=== PATIENT | female | born 1960 | race Two or more races ===

== ENCOUNTER 2022-12-18 14:42 | Inpatient (IN) | payer OTHER ==
[~2022-12-18] VITALS: Ht 139.7 cm; Wt 75.5 kg
[2022-12-18 15:39] VITALS: O2SAT 100
[2022-12-18 15:55] LABS: BASOPHILS % (AUTO) 0.3 % (0.0-2.0); EOSINOPHILS % (AUTO) 0.4 % (0.0-6.0); HEMATOCRIT 26 % (33-45); HEMOGLOBIN 8.1 g/dL (11.5-14.8); LYMPHOCYTES # (AUTO) 3.3 K/uL (0.8-4.8); LYMPHOCYTES % (AUTO) 26.4 % (20.0-44.0); MEAN CORPUSCULAR HEMOGLOBIN 24 PG (26.0-33.0); MEAN CORPUSCULAR HGB CONC 32 g/dl (31.0-36.0); MEAN CORPUSCULAR VOLUME 76 fL (82-100); MONOCYTES # (AUTO) 0.4 K/uL (0.1-1.30); MONOCYTES % (AUTO) 3.6 % (2.0-12.0); NEUTROPHILS # (AUTO) 8.6 K/uL (1.8-8.9); NEUTROPHILS % (AUTO) 69.3 % (43.0-81.0); PLATELET COUNT (AUTO) 235 K/uL (150-450); RED BLOOD CELL COUNT(AUTO) 3.37 MIL/uL (4.0-5.2); RED CELL DISTRIBUTION WIDTH 16.7 % (11.5-15.0); WHITE BLOOD COUNT (AUTO) 12.3 K/uL (4.3-11.0)
[2022-12-18] MEDS ORDERED: PANTOPRAZOLE 40 MG VIAL IV ONE (16:00)
[2022-12-18] MEDS ORDERED: IV NS 0.9% 1,000 ML BAG IV ONE (16:00)
[2022-12-18 16:09] LABS: CALCIUM, SERUM 7.8 mg/dL (8.5-10.1); CREATININE 0.7 mg/dL (0.6-1.3); INR 1.04 (0.91-1.10); PARTIAL THROMBOPLASTIN TIME 22.7 SEC (24.3-34.3); POTASSIUM 3.9 mmol/L (3.5-5.1); PROTHROMBIN TIME 10.9 SECS (9.2-11.1)
[2022-12-18 16:15] LABS: ALBUMIN 3.5 g/dL (3.4-5.0); BILIRUBIN,DIRECT 0.1 mg/dL (0.0-0.2); BILIRUBIN,TOTAL 0.3 mg/dL (0.2-1.0); TOTAL PROTEIN, SERUM 6.9 g/dL (6.4-8.2)
[2022-12-18] MEDS ORDERED: IOHEXOL-300 100 ML VIAL IV ONE ×2 (16:16→16:40)
[2022-12-18] MEDS ORDERED: IV NS 0.9% 250 ML IV ONE ×2 (16:16→16:40)
[2022-12-18] MEDS ORDERED: PANTOPRAZOLE 40 MG VIAL ONE (16:38)
[2022-12-18] MEDS ORDERED: ONDANSETRON HCL/PF 4 MG/2 ML VIAL ONE (16:43)
[2022-12-18 16:57] LABS: APPEARANCE,URINE CLEAR (CLEAR); BILIRUBIN,URINE NEGATIVE (NEGATIVE); BLOOD, URINE NEGATIVE Ery/uL (NEGATIVE); COLOR,URINE YELLOW (YELLOW); KETONES,URINE NEGATIVE (NEGATIVE); LEUKOCYTE ESTERASE ,URINE NEGATIVE (NEGATIVE); NITRITE, URINE NEGATIVE (NEGATIVE); PH,URINE 5.5 (5.0-8.0); PROTEIN,URINE NEGATIVE (NEGATIVE); UGLUCOSE 3+ mg/dL (NEGATIVE); UROBILINOGEN,URINE 0.2 EU/dL (0.2)
[2022-12-18 17:17] LABS: LACTIC ACID 2.9 mmol/L (0.4-2.0)
[2022-12-18 17:18] LABS: PREGNANCY TEST URINE QUAL NEGATIVE (NEGATIVE)
[2022-12-18] MEDS ORDERED: [UNRECOGNIZED DRUG - OTHER] PO (17:28)
[2022-12-18] MEDS ORDERED: INSU100I26 SQ (17:28)
[2022-12-18] MEDS ORDERED: DAPA1TAB3 PO (17:28)
[2022-12-18] MEDS ORDERED: LISI-768 PO (17:28)
[2022-12-18] MEDS ORDERED: ROSU5TAB13 PO (17:28)
[2022-12-18 17:29] LABS: LYMPHOCYTES % (MANUAL) 31 % (16-48); MONOCYTES % (MANUAL) 2 % (0-11.0); NEUTROPHILS % (MANUAL) 67 (42-76); PLATELET ESTIMATE ADEQUATE
[2022-12-18] MEDS ORDERED: ONDANSETRON HCL/PF 4 MG/2 ML VIAL IM ONE (17:30)
[2022-12-18] MEDS ORDERED: OCTREOTIDE 50 MCG/ML AMPUL IJ ONE (19:30)
[2022-12-18] MEDS ORDERED: Z GUARD REMEDY 4 OZ OINT TP PRN (19:30)
[2022-12-18] MEDS ORDERED: ACETAMINOPHEN 325 MG TABLET PO PRN (19:30)
[2022-12-18] MEDS ORDERED: ONDANSETRON HCL/PF 4 MG/2 ML VIAL IVP PRN (19:30)
[2022-12-18 19:48] LABS: HEMOGLOBIN 7.5 g/dL (11.5-14.8)
[2022-12-18] MEDS ORDERED: DEXTROSE 50%-WATER 50 ML DISP.SYRIN IV PRN (20:30)
[2022-12-18] MEDS ORDERED: OCTREOTIDE 50 MCG in IV NS 0.9% 50 ML IJ ONE ×2 (20:30)
[2022-12-18 20:36] LABS: THYROID STIMULATING HORMONE 0.893 uIU/mL (0.358-3.74)
[2022-12-18] MEDS: OCTREOTIDE 500 MCG in IV NS 0.9% 99 ML IV PRN (21:19)
[2022-12-18] MEDS: ATORVASTATIN 10 MG TABLET PO SCH ×2 (22:00→22:16)
[2022-12-18 22:58] VITALS: BP 84/40; TEMP 99
[2022-12-18 23:13] VITALS: BP 94/49; TEMP 99
[2022-12-18 23:45] VITALS: BP 90/56; TEMP 98.6
[2022-12-19] MEDS: BLOOD SUGAR DIAGNOSTIC 1 EACH STRIP IN SCH ×3 (00:02→12:03)
[2022-12-19] MEDS: INSULIN REGULAR, HUMAN 100 UNIT/ML 3 ML VIAL SQ PRN ×3 (00:03→15:11)
[2022-12-19 00:22] VITALS: BP 91/50; TEMP 98; O2SAT 97
[2022-12-19 00:45] VITALS: BP 95/48; TEMP 98.3
[2022-12-19 01:45] VITALS: BP 98/47; TEMP 98.7
[2022-12-19 02:25] VITALS: BP 96/53; TEMP 98.4
[2022-12-19] MEDS: IV D5/0.45 NACL 1,000 ML IV PRN ×2 (02:33→14:04)
[2022-12-19 04:07] LABS: BASOPHILS % (AUTO) 0.3 % (0.0-2.0); EOSINOPHILS # (AUTO) 0.1 K/uL (0.0-0.7); EOSINOPHILS % (AUTO) 0.9 % (0.0-6.0); HEMATOCRIT 27 % (33-45); HEMOGLOBIN 8.8 g/dL (11.5-14.8); LYMPHOCYTES # (AUTO) 5.3 K/uL (0.8-4.8); LYMPHOCYTES % (AUTO) 45.8 % (20.0-44.0); MEAN CORPUSCULAR HEMOGLOBIN 26 PG (26.0-33.0); MEAN CORPUSCULAR HGB CONC 33 g/dl (31.0-36.0); MEAN CORPUSCULAR VOLUME 79 fL (82-100); MONOCYTES # (AUTO) 0.6 K/uL (0.1-1.30); MONOCYTES % (AUTO) 5.1 % (2.0-12.0); NEUTROPHILS # (AUTO) 5.6 K/uL (1.8-8.9); NEUTROPHILS % (AUTO) 47.9 % (43.0-81.0); PLATELET COUNT (AUTO) 210 K/uL (150-450); RED BLOOD CELL COUNT(AUTO) 3.42 MIL/uL (4.0-5.2); RED CELL DISTRIBUTION WIDTH 17.4 % (11.5-15.0); WHITE BLOOD COUNT (AUTO) 11.6 K/uL (4.3-11.0)
[2022-12-19 04:19] LABS: CALCIUM, SERUM 7.6 mg/dL (8.5-10.1); CREATININE 0.4 mg/dL (0.6-1.3); MAGNESIUM 2.3 mg/dL (1.8-2.4); PHOSPHORUS 4.3 mg/dL (2.5-4.9); POTASSIUM 3.2 mmol/L (3.5-5.1)
[2022-12-19 04:22] VITALS: BP 94/56; TEMP 97.9; O2SAT 96
[2022-12-19] MEDS: POTASSIUM CHLORIDE 10 MEQ/50 ML PREMIXED IVPB FOR PERIPHERAL LINE IV SCH ×2 (05:45→07:50)
[2022-12-19 07:00] VITALS: BP 94/54; TEMP 98.6; O2SAT 95
[2022-12-19] MEDS: OCTREOTIDE 500 MCG in IV NS 0.9% 99 ML IV PRN (07:31)
[2022-12-19] MEDS ORDERED: INSULIN GLARGINE, 100 UNIT/ML CARTRIDGE SQ SCH (09:00)
[2022-12-19] MEDS ORDERED: INSULIN GLARGINE,BASAGLAR 100 UNIT/ML INSULN.PEN SQ SCH (09:00)
[2022-12-19] MEDS ORDERED: PANTOPRAZOLE 40 MG VIAL IV SCH (09:00)
[2022-12-19] MEDS: POTASSIUM CL. PREMIX PERIPHER. 50 ML IV SCH ×2 (10:48→12:08)
[2022-12-19 14:00] LABS: HEMOGLOBIN 8.4 g/dL (11.5-14.8)
[2022-12-19] MEDS ORDERED: LISINOPRIL (5MG) 5 MG TABLET PO SCH (18:00)
== END 2022-12-19 17:10 | disposition short-term general hospital (02) | DRG 378 ==
LOC: ER 14:45 → TELE 17:49 → MED 12-19 12:26
PROVIDERS: ADMIT Nurse Practitioner Acute Care; ATTEND Nurse Practitioner Acute Care
PROC: 30233N1 Transfusion of Nonautologous Red Blood Cells into Peripheral Vein, Percutaneous Approach (ICD-10-PCS; principal; 2022-12-18)
PROC: 02HV33Z Insertion of Infusion Device into Superior Vena Cava, Percutaneous Approach (ICD-10-PCS; 2022-12-18)
PROC: B548ZZA Ultrasonography of Superior Vena Cava, Guidance (ICD-10-PCS; 2022-12-18)
DX: K27.4 Chronic or unspecified peptic ulcer, site unspecified, with hemorrhage (principal); D62 Acute posthemorrhagic anemia; E87.20 Acidosis, unspecified; I10 Essential (primary) hypertension; E11.9 Type 2 diabetes mellitus without complications; Z79.4 Long term (current) use of insulin; Z90.49 Acquired absence of other specified parts of digestive tract
CPT/HCPCS: 36410; 36415; 80048-TC; 80061-TC; 80076-TC; 82962-TC; 83605-TC; 83690-TC; 83735-TC; 84100-TC; 84443-TC; 84484-TC; 84703-TC; 85025-TC; 85027-TC; 85730-TC; 86850-TC; A4223; C9113; G0378; J1815; J2354; J2405; J3480; J3490; J7030; J7050; J7060; P9016; Q9967